=== PATIENT | male | born 1985 | race Caucasian/White ===

== ENCOUNTER 2017-08-30 00:21 | Emergency (ER) | payer SELFPAY ==
[2017-08-30 00:24] VITALS: BP 185/104; PULSE 150; RESP 16; TEMP 98.1; O2SAT 100
[2017-08-30 00:40] VITALS: BP 189/95; PULSE 139; RESP 16; O2SAT 95
[2017-08-30] MEDS ORDERED: SODIUM CHLOR 0.9% 1000 ML INJ 1,000 ML IV SCH (01:04)
--- NOTE | 2017-08-30 01:13 | PD ---
HPI Chief Complaint: Alcohol/Drug Intoxication Time Seen by Provider: 00:49 Travel History International Travel<30 days: No Contact w/Intl Traveler<30days: No Traveled to known affect area: No History of Present Illness HPI Patient is a 32-year-old male presents emergency department with his friends for evaluation of altered mental status and probable dehydration. Patient recently wrote up as needed his motorcycle from [facility] in his bike week. He states he had a couple of fireball shots and then a beer and is feeling terrible after that. He states he thinks that somebody slipped him something. Family is concerned because his been diaphoretic and intermittently confused as well. They states he really has not had that much to drink today. Patient denies any chest pain abdominal pain mild nausea but no vomiting, no injuries, no leg pain. PFSH Past Medical History Medical History: Denies Significant Hx Tetanus Vaccination: Unknown Influenza Vaccination: No Past Surgical History Surgical History: No Previous Surgery Social History Alcohol Use: Yes Tobacco Use: Yes (vapor) Substance Use: No Allergies-Medications (Allergen,Severity, Reaction): Coded Allergies: Penicillins (Verified Allergy, Severe, 08/30/17) Review of Systems Except as stated in HPI: all other systems reviewed are Neg Physical Exam Narrative GENERAL: Well-developed, well-nourished, diaphoretic. SKIN: Focused skin assessment warm. Diaphoretic. HEAD: Atraumatic. Normocephalic. EYES: Pupils equal and round. No scleral icterus. No injection or drainage. ENT: No nasal bleeding or discharge. Mucous membranes pink and moist. NECK: Trachea midline. No JVD. CARDIOVASCULAR: Regular rhythm with tachycardia. No murmur appreciated. RESPIRATORY: No accessory muscle use. Clear to auscultation. Breath sounds equal bilaterally. GASTROINTESTINAL: Abdomen soft, non-tender, nondistended. Hepatic and splenic margins not palpable. MUSCULOSKELETAL: No obvious deformities. No clubbing. No cyanosis. No edema. NEUROLOGICAL: Awake and alert. No obvious cranial nerve deficits. Motor grossly within normal limits. Normal speech. PSYCHIATRIC: Normal mood, somewhat elevated affect and hyperverbal; insight and judgment normal. Data Data Last Documented VS Vital Signs Date Time Temp Pulse Resp B/P (MAP) Pulse Ox O2 Delivery O2 Flow Rate FiO2 08/30/17 03:22 08/30/17 02:25 20 95 Room Air 08/30/17 02:25 103 08/30/17 00:24 98.1 Orders Orders Complete Blood Count With Diff (08/30/17 01:04) Comprehensive Metabolic Panel (08/30/17 01:04) Prothrombin Time / Inr (Pt) (08/30/17 01:04) Act Partial Throm Time (Ptt) (08/30/17 01:04) Urinalysis - C+S If Indicated (08/30/17 01:04) Iv Access Insert/Monitor (08/30/17 01:04) Ecg Monitoring (08/30/17 01:04) Oximetry (08/30/17 01:04) Ondansetron Inj (Zofran Inj) (08/30/17 01:15) Sodium Chlor 0.9% 1000 Ml Inj (Ns 1000 M (08/30/17 01:04) Sodium Chloride 0.9% Flush (Ns Flush) (08/30/17 01:15) Creatine Kinase (Cpk) (08/30/17 01:04) Sodium Chlor 0.9% 1000 Ml Inj (Ns 1000 M (08/30/17 01:15) Alcohol (Ethanol) (08/30/17 01:04) CKMB (08/30/17 01:00) CKMB% (08/30/17 01:00) Sodium Chlor 0.9% 1000 Ml Inj (Ns 1000 M (08/30/17 02:30) Ed Discharge Order (08/30/17 02:55) Ed Discharge Order (08/30/17 02:56) Labs Laboratory Tests Test 08/30/17 01:00 08/30/17 01:25 White Blood Count 13.3 TH/MM3 Red Blood Count 5.34 MIL/MM3 Hemoglobin 16.2 GM/DL Hematocrit 47.5 % Mean Corpuscular Volume 89.0 FL Mean Corpuscular Hemoglobin 30.3 PG Mean Corpuscular Hemoglobin Concent 34.1 % Red Cell Distribution Width 13.4 % Platelet Count 301 TH/MM3 Mean Platelet Volume 7.2 FL Neutrophils (%) (Auto) 83.5 % Lymphocytes (%) (Auto) 9.1 % Monocytes (%) (Auto) 6.4 % Eosinophils (%) (Auto) 0.6 % Basophils (%) (Auto) 0.4 % Neutrophils # (Auto) 11.1 TH/MM3 Lymphocytes # (Auto) 1.2 TH/MM3 Monocytes # (Auto) 0.9 TH/MM3 Eosinophils # (Auto) 0.1 TH/MM3 Basophils # (Auto) 0.1 TH/MM3 CBC Comment DIFF FINAL Differential Comment Prothrombin Time 10.7 SEC Prothromb Time International Ratio 1.1 RATIO Activated Partial Thromboplast Time 24.3 SEC Blood Urea Nitrogen 13 MG/DL Creatinine 1.12 MG/DL Random Glucose 110 MG/DL Total Protein 8.0 GM/DL Albumin 4.3 GM/DL Calcium Level 8.5 MG/DL Alkaline Phosphatase 82 U/L Aspartate Amino Transf (AST/SGOT) 29 U/L Alanine Aminotransferase (ALT/SGPT) 51 U/L Total Bilirubin 0.5 MG/DL Sodium Level 142 MEQ/L Potassium Level 3.7 MEQ/L Chloride Level 105 MEQ/L Carbon Dioxide Level 30.5 MEQ/L Anion Gap 7 MEQ/L Estimat Glomerular Filtration Rate 76 ML/MIN Total Creatine Kinase 517 U/L Creatine Kinase MB 2.7 NG/ML Creatine Kinase MB % 0.5 % Ethyl Alcohol Level 55 MG/DL Urine Color YELLOW Urine Turbidity CLEAR Urine pH 6.5 Urine Specific [place] 1.026 Urine Protein TRACE mg/dL Urine Glucose (UA) TRACE mg/dL Urine Ketones TRACE mg/dL Urine Occult Blood NEG Urine Nitrite NEG Urine Bilirubin NEG Urine Urobilinogen LESS THAN 2.0 MG/DL Urine Leukocyte Esterase NEG Urine RBC 1 /hpf Urine WBC LESS THAN 1 /hpf Urine Mucus MANY /lpf Microscopic Urinalysis Comment CULT NOT INDICATED MDM Medical Decision Making Medical Screen Exam Complete: Yes Emergency Medical Condition: Yes Differential Diagnosis Alcohol intoxication, substance intoxication, dehydration, rhabdomyolysis Narrative Course Patient room to the emergency department, his basic labs do show mild elevation of CK and only minimal alcohol in his system. He was given a total of 3 L normal saline by bolus and is beginning to feel much better, his mental status has normalized and he wishes to be discharged. His family is here and they are willing to take him home. Patient is reassured, discussed need for hydration while on the motorcycle for long periods of time. Discussed returning to criteria Diagnosis Primary Impression: Dehydration Additional Impression: Altered mental status Disposition: 01 DISCHARGE HOME Condition: Stable Samir Rasheed MD Aug 30, 2017 01:13
[2017-08-30] MEDS ORDERED: ONDANSETRON HCL 4 MG/2 ML VIAL IVP ONE (01:15)
[2017-08-30] MEDS ORDERED: SODIUM CHLORIDE 0.9% FLUSH 10 ML FLUSH IV FLUSH PRN (01:15)
[2017-08-30] MEDS ORDERED: SODIUM CHLOR 0.9% 1000 ML INJ 1,000 ML IV ONE ×2 (01:15→02:30)
[2017-08-30 01:20] LABS: AUTOMATED NEUTROPHIL # 11.1 TH/MM3 (1.8-7.7); BASOPHIL # 0.1 TH/MM3 (0-0.2); BASOPHIL % 0.4 % (0.0-2.0); EOSINOPHIL # 0.1 TH/MM3 (0-0.4); EOSINOPHIL % 0.6 % (0.0-4.0); HEMATOCRIT 47.5 % (39.0-51.0); HEMOGLOBIN 16.2 GM/DL (13.0-17.0); LYMPH % 9.1 % (9.0-44.0); LYMPHOCYTE # 1.2 TH/MM3 (1.0-4.8); MEAN CORPUSCULAR HEMOGLOBIN 30.3 PG (27.0-34.0); MEAN CORPUSCULAR HGB CONC 34.1 % (32.0-36.0); MEAN PLATELET VOLUME 7.2 FL (7.0-11.0); MONO % 6.4 % (0.0-8.0); MONOCYTE # 0.9 TH/MM3 (0-0.9); NEUT % 83.5 % (16.0-70.0); PLATELET COUNT 301 TH/MM3 (150-450); RED BLOOD COUNT 5.34 MIL/MM3 (4.50-5.90); RED CELL DISTRIBUTION WIDTH 13.4 % (11.6-17.2); WHITE BLOOD COUNT 13.3 TH/MM3 (4.0-11.0)
[2017-08-30 01:39] LABS: BILIRUBIN, URINE NEG (NEG); BLOOD, URINE NEG (NEG); GLUCOSE,URINE TRACE mg/dL (NEG); KETONE, URINE TRACE mg/dL (NEG); MUCUS URINE MANY /lpf (OCC); NITRITE,URINE NEG (NEG); PH, URINE 6.5 (5.0-8.5); URINE COLOR YELLOW (YELLW/STRAW); URINE LEUKOCYTE ESTERASE NEG (NEG)
[2017-08-30 01:41] LABS: INTERNATIONAL NORMALIZED RATIO 1.1 RATIO; PROTHROMBIN TIME - PATIENT 10.7 SEC (9.8-11.6)
[2017-08-30 01:52] LABS: ALBUMIN 4.3 GM/DL (3.4-5.0); ALT (GPT) 51 U/L (12-78); AST (GOT) 29 U/L (15-37); BICARBONATE 30.5 MEQ/L (21.0-32.0); BLOOD UREA NITROGEN 13 MG/DL (7-18); CALCIUM 8.5 MG/DL (8.5-10.1); CHLORIDE 105 MEQ/L (98-107); CREATININE 1.12 MG/DL (0.60-1.30); GLOMERULAR FILTRATION RATE 76 ML/MIN (>89); GLUCOSE,RANDOM 110 MG/DL (74-106); SODIUM (NA) 142 MEQ/L (136-145)
[2017-08-30 01:54] LABS: ALKALINE PHOSPHATASE 82 U/L (45-117); TOTAL BILIRUBIN ADULT 0.5 MG/DL (0.2-1.0)
[2017-08-30 02:25] VITALS: BP 168/91; PULSE 103; RESP 20; O2SAT 94; O2SAT 95
== END 2017-08-30 03:24 | disposition home or self-care (01) ==
LOC: NEPE 00:21
DX: E86.0 Dehydration (principal); R41.82 Altered mental status, unspecified; R00.0 Tachycardia, unspecified; R94.4 Abnormal results of kidney function studies; F17.290 Nicotine dependence, other tobacco product, uncomplicated; Z88.0 Allergy status to penicillin
CPT/HCPCS: 80053; 80307; 81001; 82550; 82552; 85025; 85610; 85730; 96361; 96374; 99284; J2405; J7030